=== PATIENT | female | born 1965 | race Two or more races ===

== ENCOUNTER 2018-07-07 18:19 | Emergency (ER) | payer OTHER ==
[~2018-07-07] VITALS: Ht 165.1 cm; Wt 77.1 kg
--- NOTE | 2018-07-07 19:15 | NUR ---
Pt presented to the ER with a c/o laceration on Rt hand middle finger. Pt stated that she works at a [employer] and cut her finger on the top part of the dryer. 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 Pt stated that her TDAP is not up to date. Pt arrived with the finger wrapped in gauze and malgorzata blood noted. Pt is able to move the finger. Approx 2cm laceration noted on first digit of middle finger. Finger is now soaking in NS. Pt is awaiting MD novak.
[2018-07-07] MEDS ORDERED: LIDOCAINE HCL/MPF 1% 30 ML VIAL IJ ONE (19:31)
[2018-07-07] MEDS ORDERED: TDAP [DIPH/PERTUSSIS/TET] 0.5 ML VIAL IM ONE ×2 (19:32→20:00)
[2018-07-07] MEDS ORDERED: IBUPROFEN 600 MG TABLET PO ONE ×2 (19:32→20:00)
--- NOTE | 2018-07-07 19:37 | NUR ---
LAC SET UP AT THE BEDSIDE FOR . WOUND CARE DONE BY TOÑO CRONIN.
[2018-07-07] MEDS ORDERED: LIDOCAINE 1% INJ 50 ML MDV IJ ONE (20:00)
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
[2018-07-07 20:36] VITALS: BP 120/82
== END 2018-07-07 20:37 | disposition home or self-care (01) ==
LOC: ER 18:19
DX: S61.212A Laceration without foreign body of right middle finger without damage to nail, initial encounter (principal); Z23 Encounter for immunization; X58.XXXA Exposure to other specified factors, initial encounter; Y93.89 Activity, other specified; Y92.89 Other specified places as the place of occurrence of the external cause; Y99.0 Civilian activity done for income or pay
CPT/HCPCS: 12001; 90471; 90715; 99283; A6402; J3490

== ENCOUNTER 2018-07-09 16:43 | Emergency (ER) | payer OTHER ==
[~2018-07-09] VITALS: Ht 165.1 cm; Wt 77.1 kg
[2018-07-09 17:07] VITALS: BP 120/84
== END 2018-07-09 17:53 | disposition home or self-care (01) ==
LOC: ER 16:46
DX: S61.212D Laceration without foreign body of right middle finger without damage to nail, subsequent encounter (principal); F17.200 Nicotine dependence, unspecified, uncomplicated; X58.XXXD Exposure to other specified factors, subsequent encounter
CPT/HCPCS: 99281; A4606; A6402; Z7610; Z7502

== ENCOUNTER 2018-07-14 09:37 | Emergency (ER) | payer SELFPAY ==
[~2018-07-14] VITALS: Ht 170.2 cm; Wt 77.1 kg
[2018-07-14 09:37] VITALS: BP 155/88
== END 2018-07-14 10:28 | disposition home or self-care (01) ==
LOC: ER 09:40
DX: S61.212D Laceration without foreign body of right middle finger without damage to nail, subsequent encounter (principal); F17.200 Nicotine dependence, unspecified, uncomplicated; X58.XXXD Exposure to other specified factors, subsequent encounter
CPT/HCPCS: Z7502

== ENCOUNTER 2023-07-27 21:13 | Inpatient (IN) | payer OTHER ==
[~2023-07-27] VITALS: Ht 157.5 cm; Wt 68.0 kg
[2023-07-27] MEDS ORDERED: ASPIRIN 325 MG TABLET ONE (21:51)
[2023-07-27 21:52] LABS: BASOPHILS # (AUTO) 0.1 K/uL (0.0-0.2); BASOPHILS % (AUTO) 1.5 % (0.0-2.0); EOSINOPHILS # (AUTO) 0.1 K/uL (0.0-0.7); EOSINOPHILS % (AUTO) 1.5 % (0.0-6.0); HEMATOCRIT 40 % (33-45); LYMPHOCYTES # (AUTO) 1.5 K/uL (0.8-4.8); LYMPHOCYTES % (AUTO) 20.3 % (20.0-44.0); MEAN CORPUSCULAR HEMOGLOBIN 29 PG (26.0-33.0); MEAN CORPUSCULAR HGB CONC 33 g/dl (31.0-36.0); MEAN CORPUSCULAR VOLUME 89 fL (82-100); MONOCYTES # (AUTO) 0.5 K/uL (0.1-1.30); MONOCYTES % (AUTO) 7.3 % (2.0-12.0); NEUTROPHILS # (AUTO) 5.2 K/uL (1.8-8.9); NEUTROPHILS % (AUTO) 69.4 % (43.0-81.0); PLATELET COUNT (AUTO) 161 K/uL (150-450); RED BLOOD CELL COUNT(AUTO) 4.49 MIL/uL (4.0-5.2); WHITE BLOOD COUNT (AUTO) 7.5 K/uL (4.3-11.0)
[2023-07-27] MEDS ORDERED: ASPIRIN 81 MG TAB.CHEW ONE (21:53)
[2023-07-27] MEDS: ASPIRIN 81 MG TAB.CHEW PO ONE (21:57)
[2023-07-27 22:12] LABS: CALCIUM, SERUM 8.7 mg/dL (8.5-10.1); CARBON DIOXIDE 30 mmol/L (21-32); CHLORIDE 99 mmol/L (98-107); POTASSIUM 4.1 mmol/L (3.5-5.1); SODIUM SERUM 134 mmol/L (136-145); UREA NITROGEN, BLOOD 16 mg/dL (7-18)
[2023-07-27] MEDS: IV NS 0.9% 1,000 ML IV PRN (22:16)
[2023-07-27 22:25] LABS: ALANINE AMINOTRANSFERASE 62 U/L (12-78); ALBUMIN 3.1 g/dL (3.4-5.0); ALKALINE PHOSPHATASE 205 U/L (46-116); ASPARTATE AMINOTRANSFERASE 25 U/L (15-37); BILIRUBIN,DIRECT 0.2 mg/dL (0.0-0.2); BILIRUBIN,TOTAL 0.6 mg/dL (0.2-1.0); NT-PRO BNP 4192 pg/mL (0-125); TOTAL PROTEIN, SERUM 6.9 g/dL (6.4-8.2)
[2023-07-27 22:26] LABS: GLUCOSE 435 mg/dL (74-106)
[2023-07-28] MEDS ORDERED: FUROSEMIDE 40 MG/4 ML VIAL ONE (00:32)
[2023-07-28] MEDS ORDERED: INSULIN REGULAR, HUMAN 100 UNIT/ML 10 ML VIAL ONE (00:33)
[2023-07-28] MEDS: INSULIN REGULAR, HUMAN 100 UNIT/ML 10 ML VIAL IV ONE (00:42)
[2023-07-28] MEDS: FUROSEMIDE 40 MG/4 ML VIAL IV ONE (00:53)
[2023-07-28] MEDS ORDERED: MAGNESIUM HYDROXIDE 30 ML UDC PO PRN (01:00)
[2023-07-28] MEDS ORDERED: Z GUARD REMEDY 4 OZ OINT TP PRN (01:00)
[2023-07-28] MEDS ORDERED: ACETAMINOPHEN 325 MG TABLET PO PRN (01:00)
[2023-07-28] MEDS ORDERED: ONDANSETRON HCL/PF 4 MG/2 ML VIAL IVP PRN (01:00)
[2023-07-28] MEDS ORDERED: DEXTROSE 50%-WATER 50 ML DISP.SYRIN IV PRN (01:00)
[2023-07-28] MEDS ORDERED: MAG HYDROX/AL HYDROX/SIMETH 30 ML UDC PO PRN (01:00)
[2023-07-28 04:23] VITALS: BP 108/64; TEMP 98.2; O2SAT 97
[2023-07-28 05:30] VITALS: BP 108/64; TEMP 98.2; O2SAT 97
[2023-07-28] MEDS: BLOOD SUGAR DIAGNOSTIC 1 EACH STRIP IN SCH (06:50)
[2023-07-28] MEDS: INSULIN REGULAR, HUMAN 100 UNIT/ML 3 ML VIAL SQ PRN (06:55)
[2023-07-28 08:00] VITALS: BP 131/88; TEMP 97.9; O2SAT 94
[2023-07-28] MEDS: POTASSIUM CHLORIDE 20 MEQ TAB.PRT.SR PO SCH (09:24)
[2023-07-28] MEDS: FUROSEMIDE 40 MG/4 ML VIAL IV SCH (09:24)
[2023-07-28] MEDS: ASPIRIN 81 MG TAB.CHEW PO SCH (09:24)
[2023-07-28] MEDS: CARVEDILOL 3.125 MG TABLET PO SCH (09:26)
[2023-07-28 10:01] LABS: BASOPHILS # (AUTO) 0.1 K/uL (0.0-0.2); BASOPHILS % (AUTO) 0.6 % (0.0-2.0); CALCIUM, SERUM 8.5 mg/dL (8.5-10.1); EOSINOPHILS # (AUTO) 0.1 K/uL (0.0-0.7); EOSINOPHILS % (AUTO) 1.7 % (0.0-6.0); HEMATOCRIT 41 % (33-45); HEMOGLOBIN 13.5 g/dL (11.5-14.8); LYMPHOCYTES # (AUTO) 2.1 K/uL (0.8-4.8); LYMPHOCYTES % (AUTO) 23.7 % (20.0-44.0); MEAN CORPUSCULAR HEMOGLOBIN 29 PG (26.0-33.0); MEAN CORPUSCULAR HGB CONC 33 g/dl (31.0-36.0); MEAN CORPUSCULAR VOLUME 89 fL (82-100); MONOCYTES # (AUTO) 0.7 K/uL (0.1-1.30); MONOCYTES % (AUTO) 8.5 % (2.0-12.0); NEUTROPHILS # (AUTO) 5.7 K/uL (1.8-8.9); NEUTROPHILS % (AUTO) 65.5 % (43.0-81.0); PLATELET COUNT (AUTO) 163 K/uL (150-450); POTASSIUM 3.3 mmol/L (3.5-5.1); RED CELL DISTRIBUTION WIDTH 15.9 % (11.5-15.0); WHITE BLOOD COUNT (AUTO) 8.7 K/uL (4.3-11.0)
[2023-07-28 10:07] LABS: BILIRUBIN,TOTAL 0.5 mg/dL (0.2-1.0); MAGNESIUM 1.6 mg/dL (1.8-2.4); PHOSPHORUS 4.3 mg/dL (2.5-4.9)
[2023-07-28] MEDS: ALPRAZOLAM 0.25 MG TABLET PO PRN (10:36)
[2023-07-28 12:00] VITALS: BP 130/92; TEMP 98.2; O2SAT 97
[2023-07-28 16:00] VITALS: BP 108/75; TEMP 97.3; O2SAT 96
[2023-07-28 20:00] VITALS: BP 100/71; TEMP 98.5; O2SAT 96
[2023-07-28] MEDS: ZOLPIDEM TARTRATE 5 MG TABLET PO PRN (21:08)
[2023-07-29] VITALS: BP 119/88; TEMP 98.2; O2SAT 99
[2023-07-29 07:35] LABS: CALCIUM, SERUM 8.8 mg/dL (8.5-10.1); CREATININE 0.7 mg/dL (0.6-1.3); MAGNESIUM 1.5 mg/dL (1.8-2.4); PHOSPHORUS 4.2 mg/dL (2.5-4.9); POTASSIUM 3.7 mmol/L (3.5-5.1)
[2023-07-29 07:42] LABS: BASOPHILS % (AUTO) 0.4 % (0.0-2.0); EOSINOPHILS # (AUTO) 0.2 K/uL (0.0-0.7); EOSINOPHILS % (AUTO) 2.1 % (0.0-6.0); HEMATOCRIT 43 % (33-45); HEMOGLOBIN 14.4 g/dL (11.5-14.8); LYMPHOCYTES # (AUTO) 2.1 K/uL (0.8-4.8); LYMPHOCYTES % (AUTO) 24.7 % (20.0-44.0); MEAN CORPUSCULAR HEMOGLOBIN 30 PG (26.0-33.0); MEAN CORPUSCULAR HGB CONC 33 g/dl (31.0-36.0); MEAN CORPUSCULAR VOLUME 90 fL (82-100); MONOCYTES # (AUTO) 0.7 K/uL (0.1-1.30); MONOCYTES % (AUTO) 8.2 % (2.0-12.0); NEUTROPHILS # (AUTO) 5.5 K/uL (1.8-8.9); NEUTROPHILS % (AUTO) 64.6 % (43.0-81.0); PLATELET COUNT (AUTO) 170 K/uL (150-450); RED BLOOD CELL COUNT(AUTO) 4.83 MIL/uL (4.0-5.2); RED CELL DISTRIBUTION WIDTH 15.6 % (11.5-15.0); WHITE BLOOD COUNT (AUTO) 8.5 K/uL (4.3-11.0)
[2023-07-29 08:00] VITALS: BP 90/72; TEMP 98.2; O2SAT 94
[2023-07-29] MEDS ORDERED: FUROSEMIDE 40 MG/4 ML VIAL IV SCH (09:00)
[2023-07-29] MEDS ORDERED: FURO-144 PO ×2 (09:30→16:15)
[2023-07-29] MEDS ORDERED: ASPI-1169 PO (09:30)
[2023-07-29] MEDS ORDERED: POTA20TA83 PO ×2 (09:30→16:15)
[2023-07-29] MEDS ORDERED: CARV3.122 PO (09:30)
[2023-07-29] MEDS ORDERED: EMPA25TA PO ×2 (09:32→16:15)
[2023-07-29] MEDS ORDERED: METF-442 PO ×2 (09:32→16:15)
[2023-07-29] MEDS ORDERED: SACU1TAB PO ×2 (09:35→16:15)
[2023-07-29] MEDS ORDERED: SPIR25TA6 PO ×2 (09:35→16:15)
[2023-07-29] MEDS ORDERED: IOHEXOL-350 100 ML VIAL IV ONE (10:22)
[2023-07-29] MEDS ORDERED: CT SWABBABLE VALVE TRANS SET 1 EA INFUS.SET MC ONE (10:22)
[2023-07-29] MEDS ORDERED: IV NS 0.9% 250 ML IV ONE (10:23)
[2023-07-29] MEDS ORDERED: NITROGLYCERIN 0.4 MG/TAB BOTTLE ONE (10:24)
[2023-07-29] MEDS ORDERED: METOPROLOL TARTRATE INJ 5 MG/5 ML AMPUL ONE ×3 (10:25→10:50)
[2023-07-29] MEDS: METOPROLOL TARTRATE INJ 5 MG/5 ML AMPUL IVP PRN (10:35)
[2023-07-29] MEDS: NITROGLYCERIN 0.4 MG/TAB BOTTLE SL ONE (10:52)
[2023-07-29] MEDS: MAGNESIUM OXIDE 400 MG TABLET PO ONE (11:30)
[2023-07-29] MEDS: FUROSEMIDE 100 MG/10 ML VIAL IV SCH (11:30)
[2023-07-29] MEDS: Magnesium 1GM/D5W 100ML PREMIX 100 ML IV SCH (11:30)
[2023-07-29] MEDS: POTASSIUM CHLORIDE 20 MEQ TAB.PRT.SR PO SCH (11:30)
[2023-07-29 12:00] VITALS: BP 107/67; TEMP 97.5; O2SAT 94
[2023-07-29 16:00] VITALS: BP 100/69; TEMP 97.3; O2SAT 96
[2023-07-29] MEDS ORDERED: ASPI-1420 PO (16:15)
[2023-07-29] MEDS ORDERED: CARV3.12 PO (16:15)
== END 2023-07-29 16:10 | disposition home or self-care (01) | DRG 194 ==
LOC: ER 21:15 → TELE 07-28 00:53
PROVIDERS: ADMIT Student in an Organized Health Care Education/Training Program; ATTEND Internal Medicine
DX: I11.0 Hypertensive heart disease with heart failure (principal); J96.21 Acute and chronic respiratory failure with hypoxia; E44.0 Moderate protein-calorie malnutrition; E87.1 Hypo-osmolality and hyponatremia; E11.65 Type 2 diabetes mellitus with hyperglycemia; I25.10 Atherosclerotic heart disease of native coronary artery without angina pectoris; E87.6 Hypokalemia; I50.23 Acute on chronic systolic (congestive) heart failure
CPT/HCPCS: 36415; 71045-TC; 75574; 80048-TC; 80053-TC; 80076-TC; 82962-TC; 83735-TC; 83880; 84100-TC; 84484-TC; 85025-TC; 87081-TC; 93307-TC; A4223; G0378; J1815; J1940; J3475; J3490; J7050; Q9967